=== PATIENT | female | born 1990 | race African-American/Black ===

== ENCOUNTER 2022-05-13 20:48 | Emergency (ER) | payer BC, SELFPAY ==
[2022-05-13 22:29] LABS: #Eosinphils 0.3 10x3/uL (0.0-0.5); #Monocytes 0.6 10x3/uL (0.0-1.1); #Neutrophils 5.3 10x3/uL (1.5-8.4); %Basophils 0.4 % (0.0-2.0); %Eosinophils 2.4 % (0.0-6.0); %Lymphocytes 41.1 % (18.0-47.0); %Monocytes 5.5 % (0.0-10.0); %Neutrophils 50.6 % (40.0-75.0); Hemoglobin 11.4 g/dL (12.0-15.5); Mean Corpuscular HGB CONC 32.9 g/dL (32.0-36.0); Mean Corpuscular Hemoglobin 28.4 pg (27.0-33.0); Mean Corpuscular Volume 86.5 fl (81.6-98.3); Mean Platelet Volume 9.3 fl (7.4-10.4); Platelet Count 382 10x3/uL (150-450); RBC Distribution Width 13.2 % (11.5-14.5); Red Blood Cell (RBC) Count 4.01 10x6/uL (3.90-5.03); White Blood Cell (WBC) Count 10.5 10x3/uL (3.5-10.5)
[2022-05-13 22:33] LABS: BHCG - Serum Negative (NEGATIVE); Pregs Control Background? CLEAR/WHITE (CLR/WHITE); Pregs Control Bar Appear? YES (CONTROL BAR)
[2022-05-13 22:39] LABS: ALT (SGPT) 11 U/L (8-55); AST (SGOT) 14 U/L (5-34); Alkaline Phosphatase 84 U/L (40-110); Anion Gap 11 mmol/L (10-20); BUN (Urea Nitrogen) 10 mg/dL (7.0-18.7); Bilirubin, Total 0.2 mg/dL (0.2-1.2); Calc. Creatinine Clearance 0 mL/min (70-130); Calcium 9.4 mg/dL (7.8-10.44); Carbon Dioxide 25 mmol/L (22-29); Chloride 104 mmol/L (98-107); Estimated GFR 96; Globulin 3.3 g/dL (2.4-3.5); Glucose 89 mg/dL (70-105); Potassium 3.8 mmol/L (3.5-5.1); Protein, Total 7.3 g/dL (6.0-8.3); Sodium 136 mmol/L (136-145)
[2022-05-14] MEDS ORDERED: Ondansetron ODT 4 MG TAB ONE (02:23)
== END 2022-05-14 03:18 | disposition home or self-care (01) ==
LOC: CSHERS 20:48
DX: G93.89 Other specified disorders of brain (principal); I10 Essential (primary) hypertension
CPT/HCPCS: 36415; 70450; 70551; 80053; 84703; 85025; Q0162

== ENCOUNTER 2024-03-14 10:48 | Emergency (ER) | payer BC, SELFPAY | END 2024-03-14 11:49 | disposition home or self-care (01) | LOC: CSHERS 10:48 | DX: J18.9 Pneumonia, unspecified organism (principal); I10 Essential (primary) hypertension | CPT/HCPCS: 71045 ==